=== PATIENT | female | born 1995 | race Caucasian/White ===

== ENCOUNTER 2023-09-30 12:10 | Day surgery (SDC) | payer OTHER ==
[~2023-09-30] VITALS: Ht 180.3 cm; Wt 159.7 kg
[~2023-09-30 12:10] MED LIST: CLAR250SU PO; CODACEE120 PO; CYCL10 PO; Lactated Ringer's 1,000 ML IV ONE; METF500 PO; OSEL75CA PO; PROM25 PO; Pepcid20 MG PO; Vistaril25 MG PO; Zofran4 MG PO; [UNRECOGNIZED DRUG - OTHER]
[2023-09-30] MEDS ORDERED: CeFAZolin Sodium 3,000 MG in NS 100 ML IV SCH (12:35)
[2023-09-30] MEDS ORDERED: IBUP200 (12:39)
[2023-09-30] MEDS ORDERED: propofoL 40 ML IV ONE (12:40)
[2023-09-30] MEDS ORDERED: Lactated Ringer's 1,000 ML IV ONE (13:01)
[2023-09-30] MEDS ORDERED: Rocuronium Bromide 10 MG/ML 5ML Injection IV ONE (13:53)
[2023-09-30] MEDS ORDERED: Dexamethasone Sod Phos 10 MG/ML 1ML VIAL ONE (13:53)
[2023-09-30] MEDS ORDERED: Ondansetron HCl 2 MG / ML 2ML Vial ONE (13:53)
[2023-09-30] MEDS ORDERED: Midazolam HCl 1MG / ML 2ML Vial ONE (13:54)
[2023-09-30] MEDS ORDERED: FentaNYL Citrate 50 MCG/ML 2 ML Injection ONE ×2 (13:54→15:17)
[2023-09-30] MEDS ORDERED: Ketorolac Tromethamine 30mg Vial ONE (13:58)
[2023-09-30] MEDS ORDERED: Ropivacaine 0.5% HCl/Pf 5 MG/ML 20ML VIAL ONE (14:21)
[2023-09-30] MEDS ORDERED: Lidocaine 1%-Epineph 1:100000 20 ML MDV INJ ONE (14:21)
--- NOTE | 2023-09-30 14:26 | NUR ---
09/30/23 1426 Phyllis Hernandez 1ML OF EPI (1MG/ML) ADDED TO EACH OF THE FIRST THREE BAGS OF LR FOR IRRIGATION AT [facility] BY DR UP. 3MG OF EPI TOTAL. SINGLE DOSE OF TXA STARTED AT [address] BONILLA.
[2023-09-30] MEDS ORDERED: EPINEPhrine HCl 1 MG/ML 1ML Amp XX ONE (14:37)
[2023-09-30] MEDS ORDERED: Sugammadex Sodium 200 MG/2ML SDV (100 MG/ML) ONE ×2 (14:38→15:08)
[2023-09-30] MEDS ORDERED: OxyCODONE HCL 5 MG TAB ONE (16:08)
[2023-09-30 16:11] VITALS: BP 140/83
== END 2023-09-30 16:30 | disposition home or self-care (01) ==
LOC: ORSCSDS 12:10
PROVIDERS: Orthopaedic Surgery Sports Medicine
PROC: 0SBC4ZZ Excision of Right Knee Joint, Percutaneous Endoscopic Approach (ICD-10-PCS; principal; 2023-09-30 13:30)
DX: S83.251A Bucket-handle tear of lateral meniscus, current injury, right knee, initial encounter (principal); X50.1XXA Overexertion from prolonged static or awkward postures, initial encounter; E66.01 Morbid (severe) obesity due to excess calories; Z68.42 Body mass index [BMI] 45.0-49.9, adult; E11.9 Type 2 diabetes mellitus without complications; F41.8 Other specified anxiety disorders; Z87.891 Personal history of nicotine dependence
CPT/HCPCS: 82947; A9270; J0171; J1100; J1885; J2250; J2405; J2704; J2795; J3010; J7120